=== PATIENT | male | born 1970 ===

== ENCOUNTER 2025-04-06 10:00 | Day surgery (SDC) | payer OTHER ==
[2025-03-31 08:31] VITALS: BP 150/100
[2025-03-31 08:51] LABS: URINE APPEARANCE Clear; URINE BILIRRUBIN Negative (NEGATIVE); URINE BLOOD Negative; URINE COLOR Yellow; URINE GLUCOSE Negative (NEGATIVE); URINE KETONE Negative (NEGATIVE); URINE LEUKOCYTE Negative; URINE NITRATE Negative; URINE PROTEIN Negative (NEGATIVE); URINE UROBILINOGEN 0.2 E.U./dl
[2025-03-31 08:52] LABS: BASO % 0.4 % (0.1-1.2); EOS # 0.18 (0.04-0.54); EOS % 4.0 % (0.7-7.0); LYMPH # 1.34 (1.18-3.74); LYMPH % 29.6 % (19.3-53.1); MEAN PLATELET VOLUME 9.00 fl (9.4-12.4); MONO # 0.53 (0.24-0.82); MONO % 11.7 % (4.7-12.5); NEUT # 2.46 (1.56-6.13); NEUT % 54.3 % (34.0-71.1); RED CELL DISTRIBUTION WIDTH 12.0 % (11.6-14.4)
[2025-03-31 09:20] LABS: INR 1.0
[2025-03-31 09:26] LABS: URINE BACTERIA 3.5 uL (0.0-1933); URINE CAST 0.00 uL (0.0-1.40); URINE EPITHELIAL CELLS 0.2 uL (0.0-38.8); URINE RBC 1.0 uL (0.0-20.8); URINE WBC 0.7 uL (0.0-23.2)
[2025-03-31 09:31] LABS: ALT/SGPT 29.0 U/L (12-78); AST/SGOT 33.0 U/L (15-37); BILIRUBIN TOTAL 0.61 mg/dL (0.3-1.2); BUN CREA RATIO 18.0 (7.0-25.0); CREATININE SERUM 1.09 mg/dL (0.70-1.30); GFR 70.23; GLOBULINA 3.5 G/DL (2.4-3.5); GLUCOSE FASTING 89.0 mg/dL (65-100); OSMOLALITY SERUM 281.0 MOSM/KG (275-295)
[~2025-04-06] VITALS: Ht 185.4 cm; Wt 77.1 kg
[~2025-04-06 10:00] MED LIST: NORVASC2.5 MG PO
[2025-04-06] MEDS ORDERED: CEFAZOLIN SODIUM 1,000 MG VIAL IV ONE (16:15)
[2025-04-06] MEDS ORDERED: SUGAMMADEX SODIUM 200 MG/2 ML VIAL IV ONE (16:15)
[2025-04-06] MEDS ORDERED: MORPHINE SULFATE 4 MG/ML VIAL IV ONE (16:50)
== END 2025-04-06 19:05 | disposition home or self-care (01) ==
LOC: CIR.AMB 10:00
PROVIDERS: ATTEND Orthopaedic Surgery Hand Surgery
DX: S63.591A Other specified sprain of right wrist, initial encounter (principal); S63.301A Traumatic rupture of unspecified ligament of right wrist, initial encounter